=== PATIENT | female | born 1995 | race Caucasian/White ===

== ENCOUNTER 2021-04-22 10:47 | Inpatient (IN) | payer MEDICAID ==
[~2021-04-22 10:47] MED LIST: Bupivacaine 0.25% 10 ML SDV ONE
[2021-04-22] MEDS ORDERED: Acetaminophen 325 MG Tab PO PRN (11:08)
[2021-04-22] MEDS ORDERED: Oxytocin/Lactated Ringers 10 UNIT/1,000 ML BAG IV SCH (11:15)
[2021-04-22] MEDS ORDERED: Misoprostol 25 MCG (1/4 of 100 MCG) Tab VAG ONE (12:00)
[2021-04-22] MEDS ORDERED: ePHEDrine 50 MG/ML SDV IVPUSH PRN (12:55)
[2021-04-22] MEDS ORDERED: Bupivacaine/fentaNYL/NS 100 ML Bag EPIDUR PRN (12:55)
[2021-04-22] MEDS ORDERED: fentaNYL 100 MCG/2 ML SDV EPIDUR PRN (12:55)
[2021-04-22] MEDS ORDERED: diphenhydrAMINE 50 MG/ML SDV IVPUSH PRN (12:55)
[2021-04-22] MEDS ORDERED: Misoprostol 25 MCG (1/4 of 100 MCG) Tab PO PRN (15:00)
[2021-04-22] MEDS: Lactated Ringers 1,000 ML IV SCH ×3 (19:10→22:58)
[2021-04-22] MEDS ORDERED: Sodium Chloride 0.9% 10 ML Syringe FLUSH SCH (21:00)
[2021-04-23] MEDS ORDERED: Acetaminophen 325 MG Tab PO PRN (00:55)
[2021-04-23] MEDS ORDERED: Witch Hazel Medicated Pads 40/Jar TOP PRN (00:55)
[2021-04-23] MEDS ORDERED: Benzocaine/Menthol 20%-0.5% Spray 78 GM Cannister TOP PRN (00:55)
[2021-04-23] MEDS: Ibuprofen 600 MG Tab PO PRN ×3 (01:20→21:03)
[2021-04-23] MEDS: Prenatal Multivitamin with Calcium/Folic Acid/Iron Tab PO SCH (08:23)
[2021-04-23] MEDS: Docusate Sodium 100 MG Cap PO PRN ×2 (08:34→21:03)
[2021-04-24] MEDS: Prenatal Multivitamin with Calcium/Folic Acid/Iron Tab PO SCH (08:29)
[2021-04-24] MEDS: Ibuprofen 600 MG Tab PO PRN (08:29)
[2021-04-24] MEDS: Docusate Sodium 100 MG Cap PO PRN (08:30)
== END 2021-04-24 09:15 | disposition home or self-care (01) | DRG 805 ==
LOC: JD.OB 10:47 → OBSVTOIN 23:52 → JD.OB 23:53
PROVIDERS: ADMIT Obstetrics & Gynecology; ATTEND Obstetrics & Gynecology
PROC: 10E0XZZ Delivery of Products of Conception, External Approach (ICD-10-PCS; principal; 2021-04-22)
PROC: 10907ZC Drainage of Amniotic Fluid, Therapeutic from Products of Conception, Via Natural or Artificial Opening (ICD-10-PCS; 2021-04-22)
PROC: 3E0R3BZ Introduction of Anesthetic Agent into Spinal Canal, Percutaneous Approach (ICD-10-PCS; 2021-04-22)
PROC: 00HU33Z Insertion of Infusion Device into Spinal Canal, Percutaneous Approach (ICD-10-PCS; 2021-04-22)
PROC: 8E0ZXY6 Isolation (ICD-10-PCS; 2021-04-22)
DX: O48.0 Post-term pregnancy (principal); U07.1 COVID-19; Z37.0 Single live birth; O98.52 Other viral diseases complicating childbirth; Z3A.40 40 weeks gestation of pregnancy; O99.344 Other mental disorders complicating childbirth; F41.9 Anxiety disorder, unspecified
CPT/HCPCS: 01967; 36415; 51702; 59025; 59409; 82565; 83615; 84450; 84460; 84520; 84550; 85027; 86592; 86850; 86900; 86901; A9270-GY; J2590; J3010; J3490; J7120; U0002